=== PATIENT | female | born 1950 | race Caucasian/White ===

== ENCOUNTER 2019-01-16 05:59 | Inpatient (IN) ==
--- NOTE | 2019-01-11 11:04 | Anesthesiology Consultation ---
Date of Service January 11, 2019 Assessment & Plan (1) Encounter for pre-operative examination: Chart Review Chart Review: Acceptable Risk for Surgery and Patient NOT seen in Pre Admission Testing Consults Requested none History Surgery Operation Date: 01/16/19 07:15 Proposed Procedures p Right Video Assisted Thoracoscopy with Lung Wedge Biopsy - Yousif Pearson MD, FACS Height/Weight Height: 58 ft Weight: 70.307 kg Allergies Allergy/AdvReac Type Severity Reaction Status Date / Time formoterol [From Dulera] AdvReac Unknown mouth Verified 01/10/19 09:51 blister mometasone furoate AdvReac mouth Verified 01/10/19 09:51 [From Dulera] blister Medications Home Medications Medication Instructions Recorded Confirmed Last Taken apixaban 5 mg tablet 5 mg PO BID 01/09/19 01/10/19 Unknown atenolol 50 mg tablet 50 mg PO BID tab 01/09/19 01/10/19 Unknown cholecalciferol (vitamin D3) 2,000 2,000 units PO QAM 01/09/19 01/10/19 Unknown unit capsule docosahexanoic acid 200 mg capsule 200 mg PO QAM cap 01/09/19 01/10/19 Unknown duloxetine 30 mg capsule,delayed 30 mg PO BID 01/09/19 01/10/19 Unknown release furosemide 20 mg tablet 20 mg PO QAM PRN 01/09/19 01/10/19 Unknown hydroxychloroquine 200 mg tablet 200 mg PO BID tab 01/09/19 01/10/19 Unknown losartan 100 mg tablet 100 mg PO QAM 01/09/19 01/10/19 Unknown acetaminophen 500 - 1,000 mg PO Q6H PRN 01/10/19 01/10/19 Unknown calcium phosphate-vitamin D3 2 tab PO QAM 01/10/19 01/10/19 Unknown [Caltrate Gummy Bites] pantoprazole 40 mg PO QAM PRN 01/10/19 01/10/19 Unknown Past Medical History Medical History Arthritis Cardiac arrhythmia PALPATATIONS - PVC Exertional dyspnea History of hyperlipidemia Hx of subarachnoid hemorrhage 2011 R/T FALL AND HITT[place] HEAD Hx pulmonary embolism AUGUST 2018 Hypertension Sinus drainage AND COUGH - CURRENT Stage 2 chronic kidney disease Past Family History Family History Father Diabetes Heart disease Brother Diabetes Mother Hypertension Past Surgical History Surgical History H/O repair of right rotator cuff H/O sinus surgery History of appendectomy History of dilatation and curettage History of foot surgery left and right heel surgery Hx laparoscopic cholecystectomy Hx of colonoscopy Hx of wisdom tooth extraction Social History Smoking Status: Never smoker tobacco type: smokeless tobacco Do You Dip or Chew Tobacco: No Hx Alcohol Use: No Hx Substance Use: No Testing Laboratory Results CBC 12/12/2018. WBC 5.8, HGB 12.6, hct 37.9, plt 171 Na 142, K 4, Cl 106, bicarb 26, BUN 22, creat 1 Electrocardiogram Date: 08/18/18 Findings: + NSR @ (79) NSR. Normal ECG. Other Testing Stress echo 12/27/2018. NSR. EF 55%. LV systolic function normal, no RWMA. Negative ischemia.
[2019-01-16] MEDS ORDERED: LR 15ML/HR IV SCH (06:00)
--- NOTE | 2019-01-16 06:39 | History & Physical Bridge Note ---
Date of Service January 16, 2019 History & Physical Bridge Note I have examined the patient, reviewed the History & Physical and in the interval since the performance of the History & Physical I have noted the following changes of clinical significance: no changes noted
[2019-01-16] MEDS ORDERED: BUPIVACAINE 0.5 % 5 MG/1 ML MPF 30ML VIAL ONE (07:05)
[2019-01-16] MEDS ORDERED: SODIUM CHLORIDE 0.9% PF 50 ML VIAL ONE (07:05)
[2019-01-16] MEDS ORDERED: BUPIVACAINE LIPOSOME 1.3% 266 MG/20 ML VIAL ONE (07:05)
[2019-01-16] MEDS ORDERED: fentaNYL citrate 100 MCG/2 ML VIAL ONE (07:08)
[2019-01-16] MEDS ORDERED: MIDAZOLAM HCL 1 MG/ML 2ML VIAL ONE (07:08)
[2019-01-16] MEDS ORDERED: CEFAZOLIN 250 MG/ML 1 GM VIAL ONE (07:43)
[2019-01-16] MEDS ORDERED: LIDOCAINE 2% 20 MG/ML 5 ML SYR IV ONE (07:46)
[2019-01-16] MEDS ORDERED: ROCURONIUM BROMIDE 10 MG/ML 5 ML VIAL ONE (07:46)
[2019-01-16] MEDS ORDERED: PROPOFOL IV EMULSION 10 MG/ML 20 ML VIAL IV ONE (07:46)
[2019-01-16] MEDS ORDERED: ATROPINE SULFATE 0.1 MG/ML 10ML SYR IV PRN (07:47)
[2019-01-16] MEDS ORDERED: fentaNYL citrate 100 MCG/2 ML VIAL IV PRN (07:47)
[2019-01-16] MEDS ORDERED: HYDROmorphone INJ 2 MG/ML SYR/VIAL IV PRN (07:47)
[2019-01-16] MEDS ORDERED: PROMETHAZINE HCL 6.25 MG in SODIUM CHLORIDE 0.9% 50 ML IV PRN (07:47)
[2019-01-16] MEDS ORDERED: ONDANSETRON INJ 2 MG/ML 2 ML VIAL ONE (07:47)
[2019-01-16] MEDS ORDERED: ONDANSETRON INJ 2 MG/ML 2 ML VIAL IV PRN ×2 (07:47→09:46)
[2019-01-16] MEDS ORDERED: ePHEDrine sulfate 50 MG/ML AMP IV PRN (07:47)
[2019-01-16] MEDS ORDERED: DEXAMETHASONE SOD INJ 4 MG/ML VIAL ONE (07:47)
[2019-01-16] MEDS ORDERED: CEFAZOLIN 2000MG 2,000 MG/15 ML SYR IV ONE (07:59)
[2019-01-16] MEDS ORDERED: NEOSTIGMINE METHYLSULFATE 5 MG/5 ML SYR ONE (08:02)
[2019-01-16] MEDS ORDERED: PHENYLEPHRINE 100MCG/ML 5ML SYR ONE (08:02)
[2019-01-16] MEDS ORDERED: GLYCOPYRROLATE 0.2 MG/ML VIAL ONE (08:02)
[2019-01-16] MEDS ORDERED: ePHEDrine sulfate 50 MG/ML SYR ONE (08:02)
--- NOTE | 2019-01-16 08:14 | Post Operative Brief Note ---
PG Immediate Post Op with CF Date of Surgery January 16, 2019 Pre & Post Diagnosis Operation Date: 01/16/19 07:15 Pre-Op Diagnosis: Pulmonary INFILTRATES unknown etiology Post-Op Diagnosis: Pulmonary Infiltrates unknown etiology Procedure Operation Date: 01/16/19 07:15 Actual Procedures p Right Video-Assisted Thoracoscopy with Lung Wedge Biopsy(Right) - Yousif Pearson MD, FACS Surgeon Yousif Pearson MD, FACS Chief Legal Officer Alton GARCIA Estimated Blood Loss 5 Findings Consistent with Post-Op Diagnosis Specimens Specimen Description: A. Right upper lobe apex Drains Chest Tube
[2019-01-16] MEDS ORDERED: METOCLOPRAMIDE HCL INJ 5 MG/ML 2 ML VIAL IV ONE (08:35)
--- NOTE | 2019-01-16 08:47 | XRay Report ---
XR chest 1V portable HISTORY: Postop. lung biopsy COMPARISON: Outside hospital chest CT 08/18/2018. FINDINGS: Suture material within the right lung apex consistent with postoperative change. Right ches t tube terminates in the right lung apex. Small right apical pneumothorax with a pleural gap of 1.8 c m. Mild peripheral interstitial thickening persists. Trace left pleural effusion. The heart is normal in size. Prior cholecystectomy. IMPRESSION: Right-sided chest tube terminates in the right lung apex. There is a small right apical pneumothorax. Electronically signed by: Bert Mckeon M.D. 01/16/2019 8:46 AM
--- NOTE | 2019-01-16 09:08 | Anesthesiology Progress Note ---
Date of Service January 16, 2019 Anesthesia Post Procedure Vital Signs Vital Signs: Temp Pulse Pulse Resp BP BP Pulse Ox 01/16/19 09:00 36.4 C L 71 18 126/82 100 01/16/19 08:50 73 18 143/85 H 100 01/16/19 08:40 74 18 135/85 100 01/16/19 08:33 36.0 C L 76 18 125/80 99 01/16/19 06:32 36.8 C 80 18 145/99 H 98 Transfer of Care Handoff Completed per policy Notes Mental Status: alert / awake / arousable Patient Amnestic to Procedure: Yes Nausea / Vomiting: adequately controlled Pain: adequately controlled Airway Patency, RR, SpO2: stable & adequate BP & HR: stable & adequate Hydration State: stable & adequate Anesthetic Complications: no major complications apparent
[2019-01-16] MEDS ORDERED: MoRPHine SULFATE 2 MG/ML CARP IV PRN (09:46)
[2019-01-16] MEDS ORDERED: PANTOprazole 40 MG TAB PO PRN (09:46)
[2019-01-16] MEDS: ACETAMINOPHEN 1,000 MG/100 ML VIAL IV SCH ×2 (10:04→18:10)
[2019-01-16] MEDS: METOCLOPRAMIDE HCL INJ 5 MG/ML 2 ML VIAL IV SCH ×2 (10:04→18:04)
[2019-01-16] MEDS: DOCUSATE SODIUM 100 MG CAP PO SCH ×2 (10:31→20:09)
[2019-01-16] MEDS: D5W AND 1/2NSS 1,000 ML IV SCH ×2 (10:31→20:40)
[2019-01-16] MEDS: HYDROXYCHLOROQUINE SULFATE 200 MG TAB PO SCH ×2 (10:31→20:09)
[2019-01-16] MEDS: DULOXETINE HCL 30 MG CAP PO SCH ×2 (10:31→20:09)
--- NOTE | 2019-01-16 12:32 | Operative Report ---
DATE OF OPERATION: 01/16/2019 PREOPERATIVE DIAGNOSES: Pulmonary infiltrates, unknown etiology with hypoxemia and dyspnea. POSTOPERATIVE DIAGNOSES: Pulmonary infiltrates, unknown etiology with hypoxemia and dyspnea. PROCEDURE: Thoracoscopic right lung biopsies. SURGEON: Yousif Pearson MD. SECURITY INSTALLATION TECHNICIAN: JOSE Anne (MrLamar Murphy was present for the entire case and closed the skin incisions at conclusion and acted as a physician assistant certified and managed the camera). ANESTHESIA: General anesthesia, endotracheal intubation with single lumen tube. INDICATION FOR PROCEDURE AND FINDINGS: This is a 69-year-old female who became acutely ill about 5 or 6 months ago and has been dyspneic ever since. She was placed on steroids and got somewhat better. There was a waxing and waning picture of her infiltrates in her lungs and I was asked by Dr. Kyler Aleman from [facility] to evaluate her for a lung biopsy. After a long discussion with the patient and her significant other, we proceeded. On 01/16/2019, patient underwent uncomplicated right thoracoscopy. She has obviously abnormal lungs. I biopsied the upper lobe, middle lobe and lower lobe. The superior segment lower lobe appeared to be most affected by radiographically and we did a frozen section and Dr. Ernesto Jain sees quite a bit of fibrosis. We will have to wait for the permanent slides to determine the final pathology. DESCRIPTION OF PROCEDURE: The patient brought to the operating room and laid in supine position. General anesthesia induced. Endotracheal intubation was performed with single lumen tube. The patient was placed in left lateral decubitus position, right chest prepped and draped in usual sterile fashion. After appropriate timeout had been called and antibiotics given, a 5-mm incision was made for 5 mm port just posterior to the scapula. Upon placing the port, we could see that that we were in the pleural cavity and carbon dioxide was insufflated. Right upper lobe apex was wedged out using Endo-DOMITILA stapler after we placed another 5 mm port anteriorly and the 12 mm port inferiorly just above the diaphragm in the mid axillary line. We then grasped the portion of the middle lobe and wedged out part of this. We then did a generous wedge of the lower lobe superior segment. Portions of each of these were sent for culture. We had no air leak. We had no bleeding. A 266 mg of Exparel and 20 mL was mixed with 30 mL of 0.5% bupivacaine and 250 mL of normal saline. Each of the 3 ports were injected prior to making an incision and then we used it to perform an intercostal block intrathoracically from the 2nd through 11th rib. A 24-Jamaican chest tube was placed through the inferior most port and held in place with heavy silk suture. A 4-0 Monocryl was used to close the incisions. We had essentially no blood loss and the patient was extubated in the room and did not have an air leak. I attest to the content of the Intraoperative Record and any orders documented therein. Any exception s are noted below.
[2019-01-16] MEDS: ATENOLOL 50 MG TABLET PO SCH (20:08)
[2019-01-16] MEDS: OXYCODONE HCL IR 5 MG TAB (IMMEDIATE RELEASE) PO PRN (21:07)
[2019-01-17] MEDS: ACETAMINOPHEN 1,000 MG/100 ML VIAL IV SCH (02:10)
[2019-01-17] MEDS: METOCLOPRAMIDE HCL INJ 5 MG/ML 2 ML VIAL IV SCH (02:11)
[2019-01-17] MEDS: OXYCODONE HCL IR 5 MG TAB (IMMEDIATE RELEASE) PO PRN (06:01)
[2019-01-17] MEDS: D5W AND 1/2NSS 1,000 ML IV SCH (06:50)
--- NOTE | 2019-01-17 07:09 | XRay Report ---
XR chest 1V portable CLINICAL HISTORY: lung biopsy COMPARISON STUDY: 01/16/2019 FINDINGS: The heart remains mildly enlarged. There is aortic tortuosity. There is a right-sided chest tube unchanged in position. There is interval decrease in the size the right pneumothorax with a tra ce residual. Suture lines are visualized towards the right lung apex. There are minor left basilar at electatic changes.[ IMPRESSION: 1. No change in the position of the right-sided chest tube 2. Interval decrease in the size of the trace right apical pneumothorax. Electronically signed by: Himanshu Gomes M.D. 01/17/2019 7:08 AM
--- NOTE | 2019-01-17 08:18 | Anesthesiology Progress Note ---
Date of Service January 17, 2019 Anesthesia Post Procedure Vital Signs Vital Signs: Temp Pulse Pulse Resp BP Pulse Ox Pulse Ox 01/17/19 08:00 36.5 C 75 17 132/82 93 01/17/19 05:40 36.7 C 67 14 141/84 H 95 01/17/19 01:30 36.6 C 77 16 150/85 H 94 01/17/19 00:20 94 01/16/19 20:46 36.5 C 79 18 156/87 H 94 01/16/19 20:08 78 134/81 01/16/19 19:53 36.4 C L 83 19 152/85 H 94 01/16/19 17:36 36.2 C L 78 18 118/71 95 01/16/19 15:29 36.7 C 76 18 133/76 92 01/16/19 12:38 36.6 C 70 16 115/73 93 01/16/19 11:54 36.6 C 78 15 109/67 94 01/16/19 10:38 36.7 C 69 16 121/77 96 01/16/19 10:10 36.3 C L 75 16 132/84 97 01/16/19 09:35 36.2 C L 71 16 160/91 H 97 01/16/19 09:10 75 18 145/73 H 100 01/16/19 09:00 36.4 C L 71 18 126/82 100 01/16/19 08:50 73 18 143/85 H 100 01/16/19 08:40 74 18 135/85 100 01/16/19 08:33 36.0 C L 76 18 125/80 99 Pain Intensity Right Chest: Pain Intensity: 0 Notes Mental Status: alert / awake / arousable Patient Amnestic to Procedure: Yes Nausea / Vomiting: adequately controlled Pain: adequately controlled Airway Patency, RR, SpO2: stable & adequate BP & HR: stable & adequate Hydration State: stable & adequate Anesthetic Complications: no major complications apparent
[2019-01-17] MEDS ORDERED: ACETAMINOPHEN 325 MG TAB PO SCH (08:30)
--- NOTE | 2019-01-17 08:44 | XRay Report ---
XR chest 1V portable CLINICAL HISTORY: Chest tube removal COMPARISON STUDY: 09/16/2018 FINDINGS: The cardiac and mediastinal contours remain stable. There is no focal pulmonary consolidati on. There has been interval removal of the right-sided chest tube. There is no pneumothorax.[ IMPRESSION: No pneumothorax status post removal of the right-sided chest tube. Electronically signed by: Himanshu Gomes M.D. 01/17/2019 8:42 AM
[2019-01-17] MEDS: DOCUSATE SODIUM 100 MG CAP PO SCH (08:52)
[2019-01-17] MEDS: HYDROXYCHLOROQUINE SULFATE 200 MG TAB PO SCH (08:53)
[2019-01-17] MEDS: ATENOLOL 50 MG TABLET PO SCH (08:53)
[2019-01-17] MEDS: DULOXETINE HCL 30 MG CAP PO SCH (08:53)
[2019-01-17 08:57] LABS: Creatinine Clr Calc Pharmacy 53.6 ml/min; Est GFR (African American) 66.6; Est GFR (Non-African American) 57.4
[2019-01-17] MEDS ORDERED: LOSARTAN POTASSIUM 50 MG TAB PO SCH (09:00)
[2019-01-17] MEDS ORDERED: ENOXAPARIN INJ 40 MG/0.4 ML SYR SQ SCH (09:00)
--- NOTE | 2019-01-18 00:50 | Discharge Summary ---
DISCHARGE DIAGNOSIS: Interstitial lung disease. HOSPITAL COURSE: Gila is a very nice 69-year-old female who has had a rather subacute onset of marked shortness of breath which began several months ago. CT scan showed a thrombus in her right middle lobe and she has been treated with anticoagulants; however, infiltrative pattern of her lungs was quite concerning. She was placed on prednisone with some improvement and this was weaned and she became worse. She was referred by Dr. Kyler Aleman. On 01/16/2019, the patient underwent an uncomplicated right thoracoscopic biopsy. We got plenty of tissue. Frozen section showed that we had diagnostic material, but it is unclear exactly what, although it did appear to be pulmonary fibrosis. The patient did very well, was weaned to room air right away. We removed her chest tube the following day. Her x-ray looked quite good. I was quite pleased with her clinical course. We will see her back next week to go over her pathology results and then refer her back to Dr. Aleman.
== END 2019-01-17 10:39 | disposition home or self-care (01) | DRG 168 ==
LOC: ASU 05:59 → 3N 08:22